=== PATIENT | female | born 1955 | race Caucasian/White ===

== ENCOUNTER → 2021-02-27 | Outpatient (CLI) | payer MEDICARE | LOC: LAB 17:11 | DX: U07.1 COVID-19 (principal) ==

== ENCOUNTER → 2021-05-07 | Outpatient (CLI) | payer MEDICARE | LOC: CARDREHAB 08:02 | DX: R00.2 Palpitations (principal) ==

== ENCOUNTER → 2021-05-07 | Outpatient (CLI) | payer MEDICARE | LOC: VAS 09:51 → RAD 11:00 | DX: R00.2 Palpitations (principal) ==